=== PATIENT | male | born 1980 | race Caucasian/White ===

== ENCOUNTER 2022-03-01 09:20 | Emergency (ER) | payer OTHER ==
[~2022-03-01] VITALS: Ht 172.7 cm; Wt 127.0 kg
[2022-03-01] MEDS ORDERED: CLIN300C8 PO (12:01)
[2022-03-01 12:30] VITALS: BP 133/85
== END 2022-03-01 12:41 | disposition home or self-care (01) ==
LOC: ER 09:20
DX: L03.112 Cellulitis of left axilla (principal); E11.9 Type 2 diabetes mellitus without complications; I10 Essential (primary) hypertension; F12.10 Cannabis abuse, uncomplicated; Z87.891 Personal history of nicotine dependence
CPT/HCPCS: 76881

== ENCOUNTER 2025-02-01 07:25 | Emergency (ER) | payer OTHER ==
[~2025-02-01] VITALS: Ht 172.7 cm; Wt 100.0 kg
[~2025-02-01 07:25] MED LIST: CLIN1CAP70 PO
--- NOTE | 2025-02-01 07:47 | ED.PDOC ---
HPI Comments 44y M who presents to the ED via EMS for chief complaint of chest pain. EMS states pt woke up this AM at 0700 to severe, crushing chest pain. Pt states he took a smoke of his vape pen and continued to have this crushing chest pain and called EMS. EMS arrived on scene and noted pt was diaphoretic with noted BP in the 190's systolic and 120's diastolic with noted history of HTN. Pt states he did not smoke marijuana with associated ETOH last night but states it is normal amount he consumes and nothing out of the ordinary. Pt in the ED, states it is hard for him to breathe and he is continuing to have chest tightness. Pt in the ED, otherwise denies any other symptoms at this time. 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, Medications, Allergies Allergies: Coded Allergies: NO KNOWN ALLERGIES (Unverified , 03/04/18) Home Meds Active Scripts Clindamycin Hcl (Clindamycin Hcl) 300 Mg Cap, 1 CAP PO TID for 7 Days, #21 CAP 0 Refills Prov:BETTYE MORGAN 03/01/22 Information Source: Patient, Emergency Med Personnel Mode of Arrival: EMS Brought in by: EMS Past Medical History PAST MEDICAL HISTORY: DM, HTN Surgical History: Appendectomy Family History Family History: Unknown Social History Smoker: Quit Less Than 1 Year, Cigarettes Alcohol: Occasionally Drugs: Marijuana Lives In: Home Constitutional: denies: chills, diaphoresis, fatigue, fever, malaise, sweats, weakness, others EENTM: denies: blurred vision, double vision, ear bleeding, ear discharge, ear drainage, ear pain, ear ringing, eye pain, eye redness, hearing loss, mouth pain, mouth swelling, nasal discharge, nose bleeding, nose congestion, nose pain, photophobia, tearing, throat pain, throat swelling, voice changes, others Respiratory: reports: shortness of breath; denies: cough, hemoptysis, orthopnea, SOB at rest, SOB with excertion, stridor, wheezing, others Cardiovascular: reports: chest pain; denies: dizzy spells, diaphoresis, Dyspnea on exertion, edema, irregular heart beat, left arm pain, lightheadedness, palpitations, PND, syncope, others Gastrointestinal: denies: abdomen distended, abdominal pain, blood streaked bowels, constipated, diarrhea, dysphagia, difficulty swallowing, hematemesis, melena, nausea, poor appetite, poor fluid intake, rectal bleeding, rectal pain, vomiting, others Genitourinary: denies: burning, dysuria, flank pain, frequency, hematuria, incontinence, penile discharge, penile sore, pain, testicle pain, testicle swelling, urgency, others Neurological: denies: dizziness, fainting, headache, left sided numbness, left sided weakness, numbness, paresthesia, pre-existing deficit, right sided numbness, right sided weakness, seizure, speech problems, tingling, tremors, weakness, others Musculoskeletal: denies: back pain, gout, joint pain, joint swelling, muscle pain, muscle stiffness, neck pain, others Integumetry: denies: bruises, change in color, change in hair/nails, dryness, laceration, lesions, lumps, rash, wounds, others Allergic/Immunocompromised: denies: Difficulty Healing, Frequent Infections, Hives, Itching, others Hematologic/Lymphatic: denies: anemia, blood clots, easy bleeding, easy bruising, swollen glands, others Endocrine: denies: excessive hunger, excessive sweating, excessive thirst, excessive urination, flushing, intolerance to cold, intolerance to heat, unexplained weight gain, unexplained weight loss, others Psychiatric: denies: anxiety, bipolar disorder, depression, hopeless, panic disorder, schizophrenia, sleepless, suicidal, others All Other Systems: Reviewed and Negative Physical Exam General Appearance: Moderate Distress HEENT: Pharynx Normal Neck: Normal Inspection Respiratory: No Respiratory Distress Cardiovascular: Tachycardia Breast Exam: Deferred Gastrointestinal: Non Tender Genitalia: Deferred Pelvic: Deferred Rectal: Deferred Extremities: No pedal edema Neurologic: No Motor Deficits Cerebellar Function: NOT DONE Reflexes: NOT DONE Skin: Normal Color Lymphatic: NOT DONE Was a procedure done? Was a procedure done?: No CP Differential Dx Differential Diagnosis: A-fib, A-Flutter, Angina, Anxiety / Panic Attack, PVC's Differential Diagnosis: CHF, HTN Essential, HTN Accelerated, HTN Encephalopathy X-Ray, Labs, Meds, VS Vital Signs Date Time Temp Pulse Resp B/P (MAP) Pulse Ox O2 Delivery O2 Flow Rate FiO2 02/01/25 08:37 93 02/01/25 08:15 90 12 94 Room Air* 0 21 02/01/25 08:15 97.9 90 12 155/104 (121) 94 97.9 02/01/25 07:56 98.0 95 22 161/116 (131) 100 98.0 02/01/25 07:29 87 Lab Test 02/01/25 09:29 02/01/25 07:53 Range/Units Troponin I High Sensitivity Pending < 3 L </=54 ng/L White Blood Count 6.9 4.4-10.8 10^3/uL Red Blood Count 5.79 4.5-5.90 10^6/uL Hemoglobin 16.5 13.5-17.5 g/dL Hematocrit 47.5 41.0-53.0 % Mean Corpuscular Volume 81.9 80.0-100.0 fL Mean Corpuscular Hemoglobin 28.5 28.0-32.0 pg Mean Corpuscular Hemoglobin Concent 34.8 32.0-36.0 g/dL Red Cell Distribution Width 13.2 11.8-14.3 % Platelet Count 204 140-450 10^3/uL Mean Platelet Volume 8.0 6.9-10.8 fL Neutrophils (%) (Auto) 59.8 37.0-80.0 % Lymphocytes (%) (Auto) 30.5 10.0-50.0 % Monocytes (%) (Auto) 5.9 0.0-12.0 % Eosinophils (%) (Auto) 2.7 0.0-7.0 % Basophils (%) (Auto) 1.1 0.0-2.0 % Neutrophils # (Auto) 4.1 1.6-8.6 10 ^3/uL Lymphocytes # (Auto) 2.1 0.4-5.4 10 ^3/uL Monocytes # (Auto) 0.4 0-1.3 10 ^3/uL Eosinophils # (Auto) 0.2 0-0.8 10 ^3/uL Basophils # (Auto) 0.1 0-0.2 10 ^3/uL Nucleated Red Blood Cells 0.2 % Sodium Level 136 136-145 mmol/L Potassium Level 4.2 3.5-5.1 mmol/L Chloride Level 102 98-107 mmol/L Carbon Dioxide Level 23 20-31 mmol/L Anion Gap 11 5-15 Blood Urea Nitrogen 10 9-23 mg/dL Creatinine 1.09 0.700-1.30 mg/dL Glomerular Filtration Rate Calc 86 >90 mL/min BUN/Creatinine Ratio 9.2 L 10.0-20.0 Serum Glucose 267 H 74-106 mg/dL Calcium Level 10.1 8.7-10.4 mg/dL [facility] [id number] [place] [id number] Ph: [phone] DIAGNOSTIC IMAGING Diagnostic Imaging Report : [id number] Signed PATIENT: MAGI HILTON ACCT: [id number] UNIT: [id number] : 1980 LOC: ER ROOM / BED: / AGE / SEX: 44 / M ADM STATUS: REG ER SERVICE 8 ORDERING PHYSICIAN: ELMER CRUZ MD PROCEDURE(s): CXRP - CHEST PORTABLE REASON: chest pain ORDER NUMBER(s): [id number], ACCESSION NUMBER(s): [id number] CHEST RADIOGRAPH Indication: chest pain Technique: Single frontal view of the chest was obtained Comparison: None FINDINGS: The cardiac silhouette is enlarged. The lungs demonstrate perihilar airspace opacities. The pulmonary vasculature is prominent. There is no pleural effusion. There is no pneumothorax. IMPRESSION: 1. Cardiomegaly with pulmonary vascular congestion and bilateral perihilar airspace opacities. ATED BY: EDA REYES MD DICTATED DATE/TIME: 02/01/25846 SIGNED BY: EDA REYES MD SIGNED DATE/TIME: 02/01/25846 CC: Time of 1ST Reevaluation: 09:56 Reevaluation 1ST: Improved Patient Education/Counseling: Diagnosis, Treatment Family Education/Counseling: No Family Present Departure 1 Departure Time of Disposition: 09:56 (Patient presented with chest pain that was concerning for possible STEMI, ACS, PE, Pneumonia, Muscle Strain, COPD, Dissection. Data: 1. I ordered and reviewed the result of at least 3 labs including a CBC, BMP, and Troponin. 2. I independently interpreted the following tests: EKG which shows sinus arrhythmia and Chest X-ray which shows benign chest.Risk:This patient has a high risk of morbidity due to further diagnostic testing or treatment and may suffer from an acute cardiac or respiratory disorder. Workup reveals concern for ACS and patient should be admitted for further workup and possible expert consultation. ) Impression: Primary Impression: Acute chest pain Disposition: ADMITTED INPATIENT Admit to: Med Surg Condition: Serious Critical Care Note Critical Care Time?: Yes Critical care comment: Acute chest pain Authorized and Performed by: Elmer Cruz MD Total critical care time: Approximately 37 minutes Due to a high probability of clinically significant, life threatening deterioration, the patient required my highest level of preparedness to intervene emergently and I personally spent this critical care time directly and personally managing the patient. This critical care time included obtaining a history; examining the patient; pulse oximetry; ordering and review of studies; arranging urgent treatment with development of a management plan; evaluation of patient's response to treatment; frequent reassessment; and, discussions with other providers. This critical care time was performed to assess and manage the high probability of imminent, life-threatening deterioration that could result in multi-organ failure. It was exclusive of separately billable procedures and treating other patients and teaching time. Please see my other sections and the rest of the note for further information on patient assessment and treatment. Stability Stability form required: No Heart Score Heart Score: Heart Score Response (Comments) Value History Moderate Suspicious 1 EKG Repolarization Disturb 1 Age <45 0 Risk Factors >3 or Hx ASHD 2 Troponin Normal limit 0 Total 4 I personally scribed for ELMER CRUZ MD ([email or web address]) on 02/01/25 at 07:46. Electronically submitted by Ghazal Quiñones ([employer]). I personally scribed for ELMER CRUZ MD ([email or web address]) on 02/01/25 at 09:23. Electronically submitted by Ghazal Quiñones ([employer]). ELMER CRUZ MD Feb 01, 2025 07:46
[2025-02-01 08:15] VITALS: PULSE 90; RESP 12; TEMP 97.9; O2SAT 94
[2025-02-01 08:15] LABS: Chloride 102 mmol/L (98-107); Potassium 4.2 mmol/L (3.5-5.1); Sodium 136 mmol/L (136-145)
[2025-02-01 08:16] LABS: Anion Gap 11 (5-15); Carbon Dioxide 23 mmol/L (20-31)
[2025-02-01 08:17] LABS: Calcium 10.1 mg/dL (8.7-10.4)
[2025-02-01 08:19] LABS: Basophils # (auto) 0.1 10 ^3/uL (0-0.2); Basophils % (auto) 1.1 % (0.0-2.0); Eosinophils # (auto) 0.2 10 ^3/uL (0-0.8); Eosinophils % (auto) 2.7 % (0.0-7.0); Hematocrit 47.5 % (41.0-53.0); Hemoglobin 16.5 g/dL (13.5-17.5); Lymphocytes # (auto) 2.1 10 ^3/uL (0.4-5.4); Lymphocytes % (auto) 30.5 % (10.0-50.0); Mean Corpuscular Hemoglobin 28.5 pg (28.0-32.0); Mean Corpuscular Hgb Conc. 34.8 g/dL (32.0-36.0); Mean Corpuscular Volume 81.9 fL (80.0-100.0); Monocytes # (auto) 0.4 10 ^3/uL (0-1.3); Monocytes % (auto) 5.9 % (0.0-12.0); Neutrophils # (auto) 4.1 10 ^3/uL (1.6-8.6); Neutrophils % (auto) 59.8 % (37.0-80.0); Nucleated Red Blood Cells % 0.2 %; Platelet Count (auto) 204 10^3/uL (140-450); Red Blood Cells 5.79 10^6/uL (4.5-5.90); Red Cell Distribution Width 13.2 % (11.8-14.3); White Blood Cell 6.9 10^3/uL (4.4-10.8)
[2025-02-01 08:21] LABS: BUN/Creatinine Ratio 9.2 (10.0-20.0); Blood Urea Nitrogen 10 mg/dL (9-23)
[2025-02-01 08:26] LABS: Glucose 267 mg/dL (74-106)
--- NOTE | 2025-02-01 08:39 | ECG ---
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
--- NOTE | 2025-02-01 08:49 | DVH ---
CHEST RADIOGRAPH Indication: chest pain Technique: Single frontal view of the chest was obtained Comparison: None FINDINGS: The cardiac silhouette is enlarged. The lungs demonstrate perihilar airspace opacities. The pulmonary vasculature is prominent. There is no pleural effusion. There is no pneumothorax. IMPRESSION: 1. Cardiomegaly with pulmonary vascular congestion and bilateral perihilar airspace opacities.
[2025-02-01] MEDS: hydrALAZINE HCL 20 MG/ML VL IV ONE (10:25)
--- NOTE | 2025-02-01 10:26 | ECG ---
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
[2025-02-01] MEDS: METOPROLOL TARTRATE 25 MG TAB PO ONE (12:32)
--- NOTE | 2025-02-01 12:32 | ED.PDOC ---
Departure 1 Departure Time of Disposition: 12:31 (On reassessment patient is feeling significantly better and was turned to his baseline. Patient reports that he was noncompliant with his metoprolol this morning when she took now and is feeling better and would like to go home. We will discharge patient home with outpatient follow up) Impression: Primary Impression: Acute chest pain Disposition: HOME / SELF CARE / HOMELESS Condition: Stable Additional Instructions: You presented today with chest pain. Your workup today was benign including labs, troponin, EKG, chest x-ray. Your pain may be from musculoskeletal strain, acid reflux, anxiety, or many other factors. It is important to follow up with your regular doctor within 1 week. If your symptoms worsen or you have any other concerns please return to the emergency room. Discharged With: Self ELMER CRUZ MD Feb 01, 2025 12:32
[2025-02-01 13:00] VITALS: BP 140/100; PULSE 98; RESP 13; O2SAT 95
--- NOTE | 2025-02-03 12:27 | ECG ---
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
== END 2025-02-01 13:23 | disposition home or self-care (01) ==
LOC: EDBD 07:25 → ER 07:25
DX: R07.89 Other chest pain (principal); E11.9 Type 2 diabetes mellitus without complications; I10 Essential (primary) hypertension; Z90.49 Acquired absence of other specified parts of digestive tract; Z87.891 Personal history of nicotine dependence; F12.90 Cannabis use, unspecified, uncomplicated; F10.90 Alcohol use, unspecified, uncomplicated; Z79.899 Other long term (current) drug therapy; Y90.9 Presence of alcohol in blood, level not specified
CPT/HCPCS: 36415; 71045; 80048; 84484; 85025; 93005; 96374; 99285; J0360